=== PATIENT | female | born 1990 | race Caucasian/White ===

== ENCOUNTER 2021-06-24 21:05 | Emergency (ER) | payer OTHER ==
[2021-06-24 21:35] VITALS: BP 125/73; PULSE 91; RESP 20; TEMP 98
[2021-06-24] MEDS ORDERED: LIDOCAINE 1% INJ 10MG/ML (20 ML MDV) SQ STA (22:06)
--- NOTE | 2021-06-24 22:25 | ED ---
Wound/Laceration HPI - General Chief Complaint: Wound/Laceration Stated Complaint: L hand lac. Time Seen by Provider: 06/24/21 21:46 Source: patient, RN notes reviewed Mode of arrival: ambulatory Limitations: no limitations - History of Present Illness Initial Comments: This is a pleasant, [id number] 30-year-old female presents to emergency department after she inadvertently poked herself in the left index finger when she was cutting some fabric. Injury occurred just prior to arrival. She is complaining of some stinging pain to the area. No functional impairment. Tetanus status is up-to-date. No other injuries. No significant past medical history. No headache, no fever or chills, no changes in vision or hearing, no sore throat or difficulty with speech, no neck pain, no chest pain or shortness of breath, no abdominal pain, no nausea or vomiting, no changes in urination or bowel movements, no numbness or tingling,, no skin rashes or lesions. - Related Data Home Medications Medication Instructions Recorded Confirmed Multivitamins, Thera [Multivitamin 1 each PO DAILY 03/17/15 03/17/15 (formulary)] Allergies Allergy/AdvReac Type Severity Reaction Status Date / Time No Known Allergies Allergy Verified 06/24/21 22:53 Review of Systems ROS Statement: Those systems with pertinent positive or pertinent negative responses have been documented in the HPI. ROS Other: All systems not noted in ROS Statement are negative. Past Medical History Past Medical History: Asthma Additional Past Medical History / Comment(s): migraines History of Any Multi-Drug Resistant Organisms: None Reported Past Surgical History: No Surgical Hx Reported Additional Past Surgical History / Comment(s): wisdom teeth Past Anesthesia/Blood Transfusion Reactions: No Reported Reaction Past Psychological History: Anxiety, Depression Smoking Status: Never smoker Past Alcohol Use History: Occasional Past Drug Use History: Marijuana - Past Family History Mother Family Medical History: No Reported History General Exam - General Exam Comments Initial Comments: Anxious appearing female, does not appear to be ill or toxic Limitations: no limitations General appearance: alert, anxious, in distress Head exam: Present: atraumatic, normocephalic, normal inspection Eye exam: Present: normal appearance, EOMI ENT exam: Present: normal exam Neck exam: Present: normal inspection Respiratory exam: Present: normal lung sounds bilaterally. Absent: respiratory distress, wheezes, rales, rhonchi, stridor Cardiovascular Exam: Present: regular rate, normal rhythm, normal heart sounds. Absent: systolic murmur, diastolic murmur, rubs, gallop, clicks Extremities exam: Present: full ROM, other (Patient has a 3 cm flap-like laceration to the distal aspect of her left index finger. Flexor aspect. Irregular. No foreign body. Venous leading.). Absent: normal inspection (Capillary refill less than 2 seconds. No foreign body. No evidence of infectious process. No proximal abnormalities. Remainder the hand is atraumatic), tenderness Neurological exam: Present: alert, oriented X3, CN II-XII intact. Absent: normal gait, abnormal gait, motor sensory deficit, reflexes normal Skin exam: Present: warm, dry, normal color Course Vital Signs 06/24/21 21:32 Temperature 98.0 F Pulse Rate 91 Respiratory 20 Rate Blood Pressure 125/73 O2 Sat by Pulse 100 Oximetry Procedures - Laceration Laceration #1 Indication: laceration Site: hand (Left index finger) Size (cm): 3 Depth: simple, single layer Anesthetic Used: lidocaine 1% Anesthesia Technique: local infiltration, nerve block (Digital block) Amount (mls): 3 Pre-repair: wound explored, irrigated extensively Type of Sutures: nylon Size of Sutures: 5-0 Number of Sutures: 8 Technique: simple, interrupted Patient Tolerated Procedure: well, no complications Medical Decision Making - Medical Decision Making Isolated injury to the left index finger. No evidence of foreign body. X-rays revealed soft tissue disruption but no bony pathology. Patient counseled on wound care. Counseled sinus symptoms of infection. Suture removal 10 days. Patient was told to return to the ER for any signs or symptoms worsen. Told to return immediately if any other problems arise. All questions answered. Treatment plan discussed. Patient in agreement Every effort has been made to ensure accuracy of this dictation. However, due to the limitations of electronic medical records and dictation devices, errors in charting still occur. - Radiology Data Radiology results: report reviewed, image reviewed Disposition Clinical Impression: Laceration of left index finger without foreign body without damage to nail Disposition: HOME SELF-CARE Condition: Stable Instructions (If sedation given, give patient instructions): Laceration (ED) Additional Instructions: Suture removal in 10 days. Watch for signs and symptoms of infection. Wash daily with warm soapy water. Keep covered with antibiotic ointment and a sterile dressing or Band-Aid as discussed. Follow-up with your regular physician as needed. Return to the ER immediately if any symptoms worsen, new symptoms arise, or any other problems develop. Is patient prescribed a controlled substance at d/c from ED?: No Referrals: Tuan Lynn DO [Primary Care Provider] - 06/26/21 (Follow-up if needed) Time of Disposition: 23:07
--- NOTE | 2021-06-24 22:37 | XR ---
EXAMINATION TYPE: XR finger LT DATE OF EXAM: 06/24/2021 COMPARISON: NONE HISTORY: Laceration TECHNIQUE: 3 views FINDINGS: There is some soft tissue deformity at the tip of the index finger. There is no evidence of a foreign body. There is no fracture nor dislocation. IMPRESSION: Laceration deformity. No fracture seen.
[2021-06-24] MEDS ORDERED: BACITRACIN OINT 1 EACH PACKET TOPICAL ONE (23:38)
== END 2021-06-24 23:30 | disposition home or self-care (01) ==
LOC: EC 21:05
DX: S61.211A Laceration without foreign body of left index finger without damage to nail, initial encounter (principal); J45.909 Unspecified asthma, uncomplicated; F41.9 Anxiety disorder, unspecified; F32.A Depression, unspecified; F12.90 Cannabis use, unspecified, uncomplicated; X58.XXXA Exposure to other specified factors, initial encounter
CPT/HCPCS: 99283; 12002; 96372; 73140; J2001